=== PATIENT | female | born 1960 | race Hispanic/Latino ===

== ENCOUNTER 2017-03-21 07:53 | Emergency (ER) | payer OTHER ==
[~2017-03-21] VITALS: Ht 157.5 cm; Wt 91.2 kg
[~2017-03-21 07:53] MED LIST: OMEPRAZOLE40 MG PO
[2017-03-21] MEDS ORDERED: OXYMETAZOLINE HCL 0.05% NAS 1 SPRAY BTL ONE (08:45)
== END 2017-03-21 10:38 | disposition home or self-care (01) ==
LOC: ER 07:53
DX: R04.0 Epistaxis (principal); K21.9 Gastro-esophageal reflux disease without esophagitis
CPT/HCPCS: 99282